=== PATIENT | female | born 1995 | race Caucasian/White ===

== ENCOUNTER 2019-05-09 08:52 | Outpatient (CLI) | payer MEDICARE ==
--- NOTE | 2019-05-09 10:22 | RAD ---
EXAM: XR Barium Swallow Esophagus PROVIDED CLINICAL HISTORY: Dysphagia COMPARISON: None FINDINGS: Dual contrast esophagram reveals normal esophageal motility, distensibility and mucosal pattern. Ther e is no evidence for aspiration. Contrast material and 12.5 mm barium tablet passed freely from the esophagus into the stomach. Minimal hiatal hernia. IMPRESSION: Minimal hiatal hernia.
== END 2019-05-09 08:53 | disposition home or self-care (01) ==
LOC: RAD 08:52
PROVIDERS: ATTEND Internal Medicine
DX: K21.9 Gastro-esophageal reflux disease without esophagitis (principal); K62.5 Hemorrhage of anus and rectum; R13.10 Dysphagia, unspecified; K44.9 Diaphragmatic hernia without obstruction or gangrene
CPT/HCPCS: 74220